=== PATIENT | female | born 1990 ===

== ENCOUNTER 2021-04-15 08:05 | Emergency (ER) | payer BC ==
[~2021-04-15] VITALS: Ht 172.7 cm; Wt 71.4 kg
[2021-04-15 08:19] VITALS: BP 109/64; TEMP 98.1
[2021-04-15] MEDS ORDERED: EFFEXOR 75M75 MG/TAB PO (08:53)
[2021-04-15] MEDS ORDERED: VANCOCIN H125 MG/CAP PO (08:54)
--- NOTE | 2021-04-15 09:11 | NUR ---
To letitia to see patient. Placed on the heart monitor. [address] Gutierrez. States to give a popcicle. Popcicle given. heart rate 136 accelerations noted. Monitor strip showed to Dr. Gutierrez. States okay she can go.
[2021-04-15 10:32] VITALS: PULSE 67
== END 2021-04-15 10:32 | disposition home or self-care (01) ==
LOC: COL.ER 08:05
DX: O22.43 Hemorrhoids in pregnancy, third trimester (principal); Z3A.32 32 weeks gestation of pregnancy